=== PATIENT | male | born 1985 | race Caucasian/White ===

== ENCOUNTER 2022-09-01 07:14 | Day surgery (SDC) | payer OTHER ==
[2022-09-01] VITALS (226 sets, daily range): BP systolic 83–150; BP diastolic 44–97
[~2022-09-01] VITALS: Ht 182.9 cm; Wt 80.0 kg
[2022-09-01 08:33] LABS: ALKALINE PHOSPHATASE 60 u/l (38-126); ANION GAP 6 (6-22 (CALC)); BILIRUBIN, TOTAL 1.2 mg/dL (0.2-1.3); BUN 27 mg/dL (9-20); BUN/CREATININE RATIO 27 (12-20 (CALC)); CARBON DIOXIDE 34 mmol/l (22-30); CHLORIDE 103 mmol/l (95-108); GFR FOR AFR.AMER. > 60 ML/MIN (>=60 (CALC)); GFR OTHER RACES > 60 ML/MIN (>=60 (CALC)); POTASSIUM 4.6 mmol/l (3.5-5.1); SGOT/AST 32 u/l (17-59); SODIUM 138 mmol/l (137-146); TOTAL PROTEIN 6.5 g/dL (6.3-8.2)
[2022-09-01 08:38] LABS: BASO% 0.9 % (0-3); EOS% 1.5 % (0-8); HEMATOCRIT 38.8 % (39.0-50.0); HEMOGLOBIN 12.3 g/dl (14.0-18.0); LYMPH% 26.7 % (15-41); MEAN CELL VOLUME 89.8 fL CALC (80.0-100.0); MEAN CORPUSCULAR HGB 28.5 pG CALC (26.0-32.0); MEAN CORPUSCULAR HGB CONC 31.7 g/dL CAL (32.0-36.0); NEUT# 2.05 thou/uL (1.82-7.42); NEUT% 62.9 % (42-76); RED BLOOD COUNT 4.32 mill/uL (4.70-6.10); RED CELL DISTRI WIDTH 12.3 % (11.5-15.5)
[2022-09-01] MEDS ORDERED: DICLOFENAC SODI75 MG PO (09:05)
[2022-09-01] MEDS ORDERED: BACLOFEN10 MG PO (09:06)
[2022-09-01] MEDS ORDERED: CLONIDINE0.1 MG PO (18:01)
[2022-09-01] MEDS ORDERED: NALTREXONE50 MG PO (18:01)
[2022-09-01] MEDS ORDERED: KLONOPIN2 MG PO (18:02)
[2022-09-02 03:38] VITALS: BP 107/62
[2022-09-02 03:55] VITALS: BP 107/62
[2022-09-02 05:28] LABS: BASO% 0.2 % (0-3); HEMATOCRIT 38.1 % (39.0-50.0); HEMOGLOBIN 12.8 g/dl (14.0-18.0); IMMATURE GRANULOCYTES 0.2 % (0.0-5.0); LYMPH% 8.5 % (15-41); MEAN CELL VOLUME 86.6 fL CALC (80.0-100.0); MEAN CORPUSCULAR HGB 29.1 pG CALC (26.0-32.0); MEAN CORPUSCULAR HGB CONC 33.6 g/dL CAL (32.0-36.0); NEUT# 4.66 thou/uL (1.82-7.42); NEUT% 90.1 % (42-76); RED BLOOD COUNT 4.4 mill/uL (4.70-6.10)
[2022-09-02 05:49] LABS: ALBUMIN 3.8 g/dL (3.2-5.0); ALKALINE PHOSPHATASE 51 u/l (38-126); ANION GAP 10 (6-22 (CALC)); BILIRUBIN, TOTAL 1.5 mg/dL (0.2-1.3); BUN 15 mg/dL (9-20); BUN/CREATININE RATIO 16 (12-20 (CALC)); CARBON DIOXIDE 28 mmol/l (22-30); CHLORIDE 106 mmol/l (95-108); GFR FOR AFR.AMER. > 60 ML/MIN (>=60 (CALC)); GFR OTHER RACES > 60 ML/MIN (>=60 (CALC)); MAGNESIUM 2.1 mg/dL (1.6-2.3); POTASSIUM 4.1 mmol/l (3.5-5.1); SGOT/AST 29 u/l (17-59); SODIUM 139 mmol/l (137-146); TOTAL PROTEIN 6.1 g/dL (6.3-8.2)
[2022-09-02 07:13] VITALS: BP 107/52
[2022-09-02 11:02] VITALS: BP 107/52
== END 2022-09-02 16:15 | disposition home or self-care (01) | DRG 897 ==
LOC: MS2 07:14 → ANR 07:14
PROVIDERS: ATTEND Anesthesiology
DX: F11.20 Opioid dependence, uncomplicated (principal)
CPT/HCPCS: J0131; J2354; J3475